=== PATIENT | female | born 1985 | race Caucasian/White ===

== ENCOUNTER 2018-09-22 11:50 | Emergency (ER) | payer OTHER, MEDICAID, SELFPAY ==
[2018-09-22 12:04] VITALS: BP 103/64; PULSE 92; RESP 15; TEMP 36.6; O2SAT 99; BMI 24.0
--- NOTE | 2018-09-22 13:02 | DI.RAD.S_ITS ---
PROCEDURE: XR SACRUM COCCYX MIN 2V INDICATIONS: fall onto bottom from counter TECHNIQUE: 3 views of the sacrum and coccyx acquired. COMPARISON: None. FINDINGS: Bones: No displaced fractures or dislocations. There is mild facet arthropathy at the lumbosacral junction. No suspicious bony lesions. Soft tissues: Visualized bowel gas pattern is normal. No suspicious soft tissue densities. IMPRESSION: 1. No displaced fracture identified. If clinical concern persists, further evaluation may be obtained with cross-sectional imaging. Dictated by: Kit Reese M.D. on 09/22/2018 at 13:51 Approved by: Kit Reese M.D. on 09/22/2018 at 13:53
--- NOTE | 2018-09-22 13:02 | DI.RAD.S_ITS ---
PROCEDURE: XR HIP W PEL IF DONE RT 2V INDICATIONS: fall onto bottom from counter TECHNIQUE: AP pelvis with lateral view of the right hip. COMPARISON: [facility], CR, XR SACRUM COCCYX MIN 2V, 09/22/2018, 13:06. FINDINGS: Bones: No fractures or dislocations. Pelvic ring appears intact. There is mild axial joint space narrowing in the hips. No suspicious bony lesions. Soft tissues: The visualized bowel gas pattern is normal. No suspicious soft tissue calcifications. IMPRESSION: 1. No fracture or dislocation. Dictated by: Kit Reese M.D. on 09/22/2018 at 13:50 Approved by: Kit Reese M.D. on 09/22/2018 at 13:51
--- NOTE | 2018-09-22 13:21 | ED.BACK ---
HPI - Back Pain/Injury <Chelsea Valle PA-C - Last Filed: 09/22/18 20:28> General Chief Complaint: Back Pain/Injury Stated Complaint: fall off a counter, back pain Time Seen by Provider: 09/22/18 13:00 Source: patient Mode of arrival: ambulatory Limitations: no limitations History of Present Illness HPI Narrative: This 33-year-old female was standing on a counter cleaning covered when she went to step down on a 3 step stool. The top step was wet and her right foot slipped out, causing her to fall 3 or 4 ft onto the hard kitchen floor. She states that she fell onto her tailbone and right posterior hip area. She states that she was stunned for minute, but then be able to get up and walk with pain. She has pain with movement, pain with pressure on the tailbone area, better lying on her left side. She denies any weakness or paresthesia in her legs or groin area. No difficulty urinating. she denies any other injuries such as head contusion or LOC. She took 1000 mg Tylenol earlier but does not think helping pain. Unable to take NSAIDs due to ulcer history Related Data Previous Rx's Medication Instructions Recorded cyclobenzaprine 10 mg PO Q8H #10 tab 09/22/18 hydrocodone-acetaminophen [[place]] 1 tab PO BEDTIME PRN #4 tab 09/22/18 lidocaine [Lidoderm] 2 patch TOP DAILY #30 each 09/22/18 Allergies Allergy/AdvReac Type Severity Reaction Status Date / Time latex Allergy Verified 09/22/18 12:04 Review of Systems <Chelsea Valle PA-C - Last Filed: 09/22/18 20:28> Review of Systems ROS Unobtainable: All systems reviewed & are unremarkable except as noted in HPI and below PFSH <Chelsea Valle PA-C - Last Filed: 09/22/18 20:28> Medical History (Updated 09/22/18 @ 14:22 by Chelsea Valle PA-C) Anxiety disorder (Chronic) Status post tubal ligation (Resolved) Surgical History (Updated 09/22/18 @ 13:38 by Chelsea Valle PA-C) Status post (Resolved) Status post carpal tunnel release (Resolved) Status post cholecystectomy (Resolved) Social History Smoking Status: Current every day smoker Social History Smoking Status: Current every day smoker Exam <Chelsea Valle PA-C - Last Filed: 09/22/18 20:28> Narrative Exam Narrative: GENERAL APPEARANCE: Patient lying on left side, in NAD PULMONARY: Lungs clear to auscultation bilaterally CV: Regular rhythm regular without murmur, normal S1 and S2, no S3 or S4 MUSCULOSKELETAL: No point tenderness over the lumbar spine. Moderate tenderness over inferior sacrum and coccygeal area. Milder tenderness over the right SI and posterior hip. No tenderness over the lateral or anterior hip. Lower extremity strength 5/5 bilateral hip flexors, knee extensors, foot plantar flexion. Negative modified straight leg raise NEUROLOGIC: Lower extremity sensation grossly intact EXTREMITIES: No cyanosis or edema Initial Vital Signs Initial Vital Signs: Vital Signs Temperature 97.8 F 09/22/18 12:04 Pulse Rate 92 H 09/22/18 12:04 Respiratory Rate 15 09/22/18 12:04 Blood Pressure 103/64 09/22/18 12:04 Pulse Oximetry 99 09/22/18 12:04 <DO Jannette Villegas Last Filed: 09/23/18 07:42> Initial Vital Signs Initial Vital Signs: Vital Signs Temperature 97.8 F 09/22/18 12:04 Pulse Rate 92 H 09/22/18 12:04 Respiratory Rate 15 09/22/18 12:04 Blood Pressure 103/64 09/22/18 12:04 Pulse Oximetry 99 09/22/18 12:04 Course <Chelsea Valle PA-C - Last Filed: 09/22/18 20:28> Orders Ordered: Discontinued Medications Oxycodone HCl ([place]) 5 mg PO NOW ONE Stop: 09/22/18 13:33 Last Admin: 09/22/18 13:43 Dose: 5 mg Vital Signs - 8 hr 09/22/18 14:34 Pulse Rate 63 Respiratory Rate 16 Blood Pressure [Right Arm] 101/64 Pulse Oximetry 98 <DO Jannette Villegas Last Filed: 09/23/18 07:42> Orders Ordered: Discontinued Medications Oxycodone HCl ([place]) 5 mg PO NOW ONE Stop: 09/22/18 13:33 Last Admin: 09/22/18 13:43 Dose: 5 mg Vital Signs - 8 hr 09/22/18 14:34 Pulse Rate 63 Respiratory Rate 16 Blood Pressure [Right Arm] 101/64 Pulse Oximetry 98 MDM - Back Pain/Injury <Chelsea Valle PA-C - Last Filed: 09/22/18 20:28> Imaging Data hip: Radiologist's impression: [address] [address] XRay Report Signed Patient: Umu VillanuevaR#: [id number] : 1985Acct:[id number] Age/Sex: 33 / FDate of Service: 09/22/18 Loc: ED Accession Number: [id number] Procedure: XR hip w pel if done RT 2V Ordering Provider: Chelsea Valle P.A-C PROCEDURE: XR HIP W PEL IF DONE RT 2V INDICATIONS: fall onto bottom from counter TECHNIQUE: AP pelvis with lateral view of the right hip. COMPARISON: [facility], , XR SACRUM COCCYX MIN 2V, 09/22/2018, 13:06. FINDINGS: Bones: No fractures or dislocations. Pelvic ring appears intact. There is mild axial joint space narrowing in the hips. No suspicious bony lesions. Soft tissues: The visualized bowel gas pattern is normal. No suspicious soft tissue calcifications. IMPRESSION: 1. No fracture or dislocation. Dictated by: Kit Reese M.D. on 09/22/2018 at 13:50 Approved by: Kit Reese M.D. on 09/22/2018 at 13:51 sacrum/coccyx: Radiologist's impression: [address] [address] XRay Report Signed Patient: Umu VillanuevaR#: [id number] : 1985Acct:[id number] Age/Sex: 33 / FDate of Service: 09/22/18 Loc: ED Accession Number: [id number] Procedure: XR sacrum coccyx min 2V Ordering Provider: Chelsea Valle P.A-C PROCEDURE: XR SACRUM COCCYX MIN 2V INDICATIONS: fall onto bottom from counter TECHNIQUE: 3 views of the sacrum and coccyx acquired. COMPARISON: None. FINDINGS: Bones: No displaced fractures or dislocations. There is mild facet arthropathy at the lumbosacral junction. No suspicious bony lesions. Soft tissues: Visualized bowel gas pattern is normal. No suspicious soft tissue densities. IMPRESSION: 1. No displaced fracture identified. If clinical concern persists, further evaluation may be obtained with cross-sectional imaging. Dictated by: Kit Reese M.D. on 09/22/2018 at 13:51 Approved by: Kit Reese M.D. on 09/22/2018 at 13:53 Discharge Plan Departure Patient Disposition: Home Clinical Impression: Contusion of hip region Coccygeal contusion Qualifiers: Encounter type: initial encounter Qualified Code(s): S30.0XXA - Contusion of lower back and pelvis, initial encounter Discharge Date/Time: 09/22/18 15:22 Interventions: ED Discharge Assessment Last Done: 09/22/18 15:22 Instructions: DI for Low Back Pain, Coccydynia Activity Restrictions/Additional Instructions: As we talked about, you should be seen or return to the emergency department right away if you have new symptoms such as weakness or numbness in your legs or groin, or inability to urinate. Please keep pressure off of the tailbone and back of the hip area. Gentle walking is okay. Take Tylenol and use the lidocaine patches during the day, and if you need a pain pill or muscle relaxant at night I have prescribed a few hydrocodone/acetaminophen for the next night or 2 if you need them as well as a muscle relaxant called cyclobenzaprine. Both of these can make you sleepy so be careful not to drive when taking them. Please call the hospital Resource Center or your insurance for a referral to a primary care provider. I would recommend you follow-up in a week or so to assess your progress and see whether you need any other testing or repeat x-rays, or a referral to physical therapy. Prescriptions: New cyclobenzaprine 10 mg tablet 10 mg PO Q8H Qty: 10 RF: 0 hydrocodone-acetaminophen [[place]] 5-325 mg tablet 1 tab PO BEDTIME PRN (Reason: acute back/hip pain) Qty: 4 RF: 0 lidocaine [Lidoderm] 5 % adhesive patch,medicated 2 patch TOP DAILY Qty: 30 RF: 0 <Olesya Pop, DO - Last Filed: 09/23/18 07:42> Cosign ED Attending Cosneemaature Attestation: I was immediately available in the department for consultation. Documentation has been reviewed. I agree with assessment and plan.
--- NOTE | 2018-09-22 13:40 | ED_ITS ---
HPI - Back Pain/Injury <Chelsea Valle PA-C - Last Filed: 09/22/18 20:28> General Chief Complaint: Back Pain/Injury Stated Complaint: fall off a counter, back pain Time Seen by Provider: 09/22/18 13:00 Source: patient Mode of arrival: ambulatory Limitations: no limitations History of Present Illness HPI Narrative: This 33-year-old female was standing on a counter cleaning covered when she went to step down on a 3 step stool. The top step was wet and her right foot slipped out, causing her to fall 3 or 4 ft onto the hard kitchen floor. She states that she fell onto her tailbone and right posterior hip area. She states that she was stunned for minute, but then be able to get up and walk with pain. She has pain with movement, pain with pressure on the tailbone area, better lying on her left side. She denies any weakness or paresthesia in her legs or groin area. No difficulty urinating. she denies any other injuries such as head contusion or LOC. She took 1000 mg Tylenol earlier but does not think helping pain. Unable to take NSAIDs due to ulcer history Related Data Previous Rx's Medication Instructions Recorded cyclobenzaprine 10 mg PO Q8H #10 tab 09/22/18 hydrocodone-acetaminophen [[place]] 1 tab PO BEDTIME PRN #4 tab 09/22/18 lidocaine [Lidoderm] 2 patch TOP DAILY #30 each 09/22/18 Allergies Allergy/AdvReac Type Severity Reaction Status Date / Time latex Allergy Verified 09/22/18 12:04 Review of Systems <Chelsea Valle PA-C - Last Filed: 09/22/18 20:28> Review of Systems ROS Unobtainable: All systems reviewed & are unremarkable except as noted in HPI and below PFSH <Chelsea Valle PA-C - Last Filed: 09/22/18 20:28> Medical History (Updated 09/22/18 @ 14:22 by Chelsea Valle PA-C) Anxiety disorder (Chronic) Status post tubal ligation (Resolved) Surgical History (Updated 09/22/18 @ 13:38 by Chelsea Valle PA-C) Status post (Resolved) Status post carpal tunnel release (Resolved) Status post cholecystectomy (Resolved) Social History Smoking Status: Current every day smoker Social History Smoking Status: Current every day smoker Exam <Chelsea Valle PA-C - Last Filed: 09/22/18 20:28> Narrative Exam Narrative: GENERAL APPEARANCE: Patient lying on left side, in NAD PULMONARY: Lungs clear to auscultation bilaterally CV: Regular rhythm regular without murmur, normal S1 and S2, no S3 or S4 MUSCULOSKELETAL: No point tenderness over the lumbar spine. Moderate tenderness over inferior sacrum and coccygeal area. Milder tenderness over the right SI and posterior hip. No tenderness over the lateral or anterior hip. Lower extremity strength 5/5 bilateral hip flexors, knee extensors, foot plantar flexion. Negative modified straight leg raise NEUROLOGIC: Lower extremity sensation grossly intact EXTREMITIES: No cyanosis or edema Initial Vital Signs Initial Vital Signs: Vital Signs Temperature 97.8 F 09/22/18 12:04 Pulse Rate 92 H 09/22/18 12:04 Respiratory Rate 15 09/22/18 12:04 Blood Pressure 103/64 09/22/18 12:04 Pulse Oximetry 99 09/22/18 12:04 <DO Jannette Villegas Last Filed: 09/23/18 07:42> Initial Vital Signs Initial Vital Signs: Vital Signs Temperature 97.8 F 09/22/18 12:04 Pulse Rate 92 H 09/22/18 12:04 Respiratory Rate 15 09/22/18 12:04 Blood Pressure 103/64 09/22/18 12:04 Pulse Oximetry 99 09/22/18 12:04 Course <Chelsea Valle PA-C - Last Filed: 09/22/18 20:28> Orders Ordered: Discontinued Medications Oxycodone HCl ([place]) 5 mg PO NOW ONE Stop: 09/22/18 13:33 Last Admin: 09/22/18 13:43 Dose: 5 mg Vital Signs - 8 hr 09/22/18 14:34 Pulse Rate 63 Respiratory Rate 16 Blood Pressure [Right Arm] 101/64 Pulse Oximetry 98 <DO Jannette Villegas Last Filed: 09/23/18 07:42> Orders Ordered: Discontinued Medications Oxycodone HCl ([place]) 5 mg PO NOW ONE Stop: 09/22/18 13:33 Last Admin: 09/22/18 13:43 Dose: 5 mg Vital Signs - 8 hr 09/22/18 14:34 Pulse Rate 63 Respiratory Rate 16 Blood Pressure [Right Arm] 101/64 Pulse Oximetry 98 MDM - Back Pain/Injury <Chelsea Valle PA-C - Last Filed: 09/22/18 20:28> Imaging Data hip: Radiologist's impression: [address] [address] XRay Report Signed Patient: Umu VillanuevaR#: [id number] : 1985Acct:[id number] Age/Sex: 33 / FDate of Service: 09/22/18 Loc: ED Accession Number: [id number] Procedure: XR hip w pel if done RT 2V Ordering Provider: Chelsea Valle P.A-C PROCEDURE: XR HIP W PEL IF DONE RT 2V INDICATIONS: fall onto bottom from counter TECHNIQUE: AP pelvis with lateral view of the right hip. COMPARISON: [facility], , XR SACRUM COCCYX MIN 2V, 09/22/2018, 13:06. FINDINGS: Bones: No fractures or dislocations. Pelvic ring appears intact. There is mild axial joint space narrowing in the hips. No suspicious bony lesions. Soft tissues: The visualized bowel gas pattern is normal. No suspicious soft tissue calcifications. IMPRESSION: 1. No fracture or dislocation. Dictated by: Kit Reese M.D. on 09/22/2018 at 13:50 Approved by: Kit Reese M.D. on 09/22/2018 at 13:51 sacrum/coccyx: Radiologist's impression: [address] [address] XRay Report Signed Patient: Umu VillanuevaR#: [id number] : 1985Acct:[id number] Age/Sex: 33 / FDate of Service: 09/22/18 Loc: ED Accession Number: [id number] Procedure: XR sacrum coccyx min 2V Ordering Provider: Chelsea Valle P.A-C PROCEDURE: XR SACRUM COCCYX MIN 2V INDICATIONS: fall onto bottom from counter TECHNIQUE: 3 views of the sacrum and coccyx acquired. COMPARISON: None. FINDINGS: Bones: No displaced fractures or dislocations. There is mild facet arthropathy at the lumbosacral junction. No suspicious bony lesions. Soft tissues: Visualized bowel gas pattern is normal. No suspicious soft tissue densities. IMPRESSION: 1. No displaced fracture identified. If clinical concern persists, further evaluation may be obtained with cross- sectional imaging. Dictated by: Kit Reese M.D. on 09/22/2018 at 13:51 Approved by: Kit Reese M.D. on 09/22/2018 at 13:53 Discharge Plan Departure Patient Disposition: Home Clinical Impression: Contusion of hip region Coccygeal contusion Qualifiers: Encounter type: initial encounter Qualified Code(s): S30.0XXA - Contusion of lower back and pelvis, initial encounter Discharge Date/Time: 09/22/18 15:22 Interventions: ED Discharge Assessment Last Done: 09/22/18 15:22 Instructions: DI for Low Back Pain, Coccydynia Activity Restrictions/Additional Instructions: As we talked about, you should be seen or return to the emergency department right away if you have new symptoms such as weakness or numbness in your legs or groin, or inability to urinate. Please keep pressure off of the tailbone and back of the hip area. Gentle walking is okay. Take Tylenol and use the lidocaine patches during the day, and if you need a pain pill or muscle relaxant at night I have prescribed a few hydrocodone/acetaminophen for the next night or 2 if you need them as well as a muscle relaxant called cyclobenzaprine. Both of these can make you sleepy so be careful not to drive when taking them. Please call the hospital Resource Center or your insurance for a referral to a primary care provider. I would recommend you follow-up in a week or so to assess your progress and see whether you need any other testing or repeat x-rays, or a referral to physical therapy. Prescriptions: New cyclobenzaprine 10 mg tablet 10 mg PO Q8H Qty: 10 RF: 0 hydrocodone-acetaminophen [[place]] 5-325 mg tablet 1 tab PO BEDTIME PRN (Reason: acute back/hip pain) Qty: 4 RF: 0 lidocaine [Lidoderm] 5 % adhesive patch,medicated 2 patch TOP DAILY Qty: 30 RF: 0 <Olesya Pop, DO - Last Filed: 09/23/18 07:42> Cosign ED Attending Cosneemaature Attestation: I was immediately available in the department for consultation. Documentation has been reviewed. I agree with assessment and plan.
[2018-09-22] MEDS: OXYCODONE IR 5 MG TABLET PO (13:43)
[2018-09-22 14:34] VITALS: BP 101/64; PULSE 63; RESP 16; O2SAT 98
== END 2018-09-22 15:22 | disposition home or self-care (01) ==
PROVIDERS: Emergency Provider Internal Medicine
DX: S30.0XXA Contusion of lower back and pelvis, initial encounter (principal); S70.01XA Contusion of right hip, initial encounter; W19.XXXA Unspecified fall, initial encounter
CPT/HCPCS: 72220; 73502; 99283

== ENCOUNTER 2023-08-24 14:05 | Emergency (ER) | payer OTHER, MEDICAID, SELFPAY ==
[2023-08-24 14:10] VITALS: BP 122/60; PULSE 82; RESP 16; TEMP 36.6; O2SAT 97; BMI 25.7
[2023-08-24 14:49] LABS: Appearance Urine UA Cloudy
[2023-08-24 14:50] LABS: Bacteria Urine Many (>30); RBC Urine 30-100/HPF (0-5/HPF); Squamous Epithelial Cell Urine 1-5 /HPF (0-5/HPF); Urine Volume 10mL (spun); WBC Urine 30-100/HPF (0-5/HPF)
[2023-08-24 14:52] LABS: Color Urine UA ORANGE; Culture Indicated Urine Specimen Cultured
--- NOTE | 2023-08-24 16:02 | PC.NURSE ---
patient is here to get a refill of albuterol since she lost it while moving stuff. She also has UTI s/sx. She states that she has been having burning while urinating and retention post void. She denies chills, fever, n/v/d. She states taking OTC medications helps the pain. Shes been taking pyridium and cranberry pills but the cran does not help.
--- NOTE | 2023-08-24 16:30 | ED.FEMALEGU ---
HPI - Female Genitourinary General Chief complaint: Urogenital-Female Stated complaint: per pt bladder infection poss going to kidneys Time Seen by Provider: 08/24/23 16:30 Source: patient Mode of arrival: Ambulatory History of Present Illness HPI Narrative: 38-year-old female with history of asthma who presents with complaint of UTI and urinary frequency, dysuria with a sense of incomplete emptying. Patient states a little bit of mild lower back pain that just started last day. She has had 3 days of symptoms. No fevers. No nausea or vomiting. She denies any abdominal pain anteriorly. Denies any hematuria or discharge. No new vaginal bleeding. She has had UTIs in the past she states no prior resistance. She did take a dose of Pyridium which was somewhat helpful. She also requests a refill for her albuterol. She states she misplaced it and wants to refill it before she needs a. She states she does have a spacer. She states no other daily medications. Denies any drug allergies. Does use tobacco daily, occasional alcohol, no recreational drugs. Related Data Previous Rx's Medication Instructions Recorded cyclobenzaprine 10 mg tablet 10 mg PO Q8H back pain/spasm. Do 09/22/[address] #10 tabs hydrocodone 5 mg-acetaminophen 325 1 tab PO BEDTIME PRN acute 09/22/18 mg tablet ([place]) back/hip pain #4 tabs lidocaine 5 % topical patch 2 patch topical DAILY #30 ea 09/22/18 (Lidoderm) albuterol sulfate 90 mcg/actuation 2 puff inhalation Q4-6H PRN 08/24/23 aerosol inhaler shortness of breath or wheezing #8.5 grams cephalexin 500 mg capsule 500 mg PO BID 5 days #10 caps 08/24/23 Allergies Allergy/AdvReac Type Severity Reaction Status Date / Time latex Allergy Verified 08/24/23 14:12 Review of Systems Review of Systems ROS Unobtainable: All systems reviewed & are unremarkable except as noted in HPI and below Patient History Medical History Anxiety disorder Surgical History Status post carpal tunnel release Status post Status post tubal ligation Status post cholecystectomy alcohol intake frequency: holidays/special occasions only Substance Use Type: does not use Exam Narrative Exam Narrative: GENERAL: Alert and oriented x three, female in mild distress. HEENT: Head normocephalic, atraumatic, EOMI, pupils reactive, face symmetric, moist mucous membranes NECK: Supple, full range of motion CARDIOVASCULAR: Regular rate and rhythm without murmurs, rubs or gallops. RESPIRATORY: Breath sounds equal bilaterally, no wheezes rales or rhonchi. No tachypnea or accessory muscle use. ABDOMEN: Soft, nontender. Normoactive bowel sounds all 4 quadrants. No guarding or rebound, rigidity, no mass : No CVA tenderness bilaterally. EXTREMITIES: Normal range of motion, no clubbing or edema. Neurovascularly intact NEUROLOGICAL: Cranial nerves II through XII grossly intact. Moving all extremities SKIN: Warm, dry, no petechiae, no rashes or lesions. Initial Vital Signs Initial Vital Signs: Vital Signs Temperature 97.8 F 08/24/23 14:10 Pulse Rate 82 08/24/23 14:10 Respiratory Rate 16 08/24/23 14:10 Blood Pressure 122/60 08/24/23 14:10 Pulse Oximetry 97 08/24/23 14:10 Oxygen Delivery Method Room Air 08/24/23 14:10 Course Orders Ordered: ED Orders 08/24/23 14:24 Urinalysis and Microscopic Stat Urine Culture Stat Vital Signs Vital signs: Vital Signs - 8 hr 08/24/23 14:10 08/24/23 16:52 Temperature 97.8 F Pulse Rate 82 67 Respiratory Rate 16 14 Blood Pressure 122/60 112/63 Pulse Oximetry 97 98 Oxygen Delivery Method Room Air Room Air MDM - Female Genitourinary Lab Data Labs: Lab Results 08/24/23 Range/Units 14:24 Urine Color [place] Urine Appearance Cloudy Urine pH TNP Ur Specific [place] TNP Urine Protein TNP Urine Glucose (UA) TNP Urine Ketones TNP Urine Occult Blood TNP Urine Nitrate TNP Urine Bilirubin TNP Urine Urobilinogen TNP Ur Leukocyte Esterase TNP Urine RBC 30-100/hpf H (0-5/HPF) Urine WBC 30-100/hpf H (0-5/HPF) Ur Squamous Epith Cells 1-5 /hpf (0-5/HPF) Urine Bacteria Many (>30) H (None) Ur Culture Indicated? Specimen cultured Vol Urine Centrifuged 10ml (spun) [facility] Narrative Medical decision making narrative: 38-year-old female with symptoms consistent with UTI, she is 30-100 RBCs 30-100 WBCs with many bacteria specimen was sent for culture. Patient has not had any significant flank pain she has had a little bit of low back discomfort but states seems to be more urinary making kidney stone less likely. We will treat with oral antibiotic. Patient also requested albuterol refill as she is misplaced hers. She does not have any symptoms currently. Discharge Plan Departure Patient Disposition: Home Clinical Impression: Urinary tract infection Instructions: DI for Urinary Tract Infection (UTI) Activity Restrictions/Additional Instructions: Follow-up as needed. Take antibiotics until completed. Start your 1st dose today. You should expect to have some improvement in symptoms in the next 24-48 hours. There is also prescription for albuterol included. Prescription sent to [facility] in [place]. Please return for fevers, new abdominal back or flank pain, vomiting, difficulty with urination or other new or concerning changes. Prescriptions: New cephalexin 500 mg capsule 500 mg PO BID 5 Days Qty: 10 0RF albuterol sulfate 90 mcg/actuation HFA aerosol inhaler 2 puff inhalation Q4-6H PRN (Reason: shortness of breath or wheezing) Qty: 8.5 0RF No Action cyclobenzaprine 10 mg tablet 10 mg PO Q8H Qty: 10 0RF Rx Instructions: Do not drive hydrocodone-acetaminophen [[place]] 5-325 mg tablet 1 tab PO BEDTIME PRN (Reason: acute back/hip pain) Qty: 4 0RF Rx Instructions: do not drive lidocaine [Lidoderm] 5 % adhesive patch,medicated 2 patch TOP DAILY Qty: 30 0RF Rx Instructions: leave on most painful area for 12 hrs daily Stand Alone Forms: Patient Portal/API
[2023-08-24 16:52] VITALS: BP 112/63; PULSE 67; RESP 14; O2SAT 98
== END 2023-08-24 16:54 | disposition home or self-care (01) ==
PROVIDERS: Emergency Provider Emergency Medicine
DX: N39.0 Urinary tract infection, site not specified (principal)
CPT/HCPCS: 81001; 87077; 87086; 87186; 99281; 99283